=== PATIENT | female | born 1980 | race Caucasian/White ===

== ENCOUNTER 2016-08-24 16:38 | Emergency (ER) | payer OTHER ==
[~2016-08-24] VITALS: Ht 175.3 cm; Wt 69.8 kg
[~2016-08-24 16:38] MED LIST: BACTRIM,SEPT1 TABLET PO; CHANTIX1 EACH; CIPRO500 MG PO; ENDOCET 5-3251 EACH PO; FLAGYL500 MG PO; FLEXERIL10 MG PO; GABAPENTIN600 MG PO; IBUPROFEN800 MG; KEFLEX500 MG PO; MEDROL DOSEPAK4 MG PO; MIRALAX255 GM PO; NICOTINE PATCH1 EAC2 TD; NOHOMEMEDS; PERCOCET 5/31 TABLET PO; PREDNISONE20 MG PO; TYLENOL WITH C1 EACH PO; ULTRAM50 MG PO; VALIUM5 MG PO; ZOFRAN4 MG PO
[2016-08-24] MEDS ORDERED: METHADONE1 MG/1 ML PO (17:49)
[2016-08-24 20:16] VITALS: BP 108/60
== END 2016-08-24 20:17 | disposition home or self-care (01) ==
LOC: EME 16:38 → EXP 16:38
DX: M79.89 Other specified soft tissue disorders (principal); M79.604 Pain in right leg; M79.605 Pain in left leg; F17.200 Nicotine dependence, unspecified, uncomplicated
CPT/HCPCS: 93970; 99281; 99283

== ENCOUNTER 2016-08-26 07:49 | Emergency (ER) | payer OTHER ==
[~2016-08-26] VITALS: Ht 175.3 cm; Wt 52.7 kg
[~2016-08-26 07:49] MED LIST changes: +METHADONE1 MG/1 ML PO
[2016-08-26] MEDS ORDERED: MOTRIN600 MG PO (10:53)
[2016-08-26 11:02] VITALS: BP 96/62
== END 2016-08-26 11:16 | disposition home or self-care (01) ==
LOC: EME 07:49
DX: S30.0XXA Contusion of lower back and pelvis, initial encounter (principal); W00.0XXA Fall on same level due to ice and snow, initial encounter; F17.200 Nicotine dependence, unspecified, uncomplicated
CPT/HCPCS: 72100; 99281; 99284; J1885; J2060